=== PATIENT | female | born 1955 | race Caucasian/White ===

== ENCOUNTER 2017-11-18 09:13 | Inpatient (IN) | payer OTHER ==
[2017-11-18] MEDS ORDERED: ACETAMINOPHEN 325 MG TAB PO (09:30)
[2017-11-18] MEDS ORDERED: DOCUSATE SODIUM 100 MG CAP PO (09:30)
[2017-11-18] MEDS ORDERED: ONDANSETRON 4 MG INJ IV (09:30)
[2017-11-18] MEDS ORDERED: BISACODYL 10 MG SUPP PR (09:30)
[2017-11-18] MEDS ORDERED: MAGNESIUM HYDROXIDE 30ML CUP PO (09:30)
[2017-11-18] MEDS ORDERED: NITROGLYCERIN (SL) 0.4 MG TAB SL (09:30)
[2017-11-18] MEDS ORDERED: NACL 0.9% 3 ML SYG IV (09:30)
[2017-11-18 10:43] LABS: ADD MAN DIFF? NO
[2017-11-18 10:51] LABS: BASOPHILS % 0.5 % (0.0-2.0); EOSINOPHILS # 0.1 10^3/ul (0.0-0.5); EOSINOPHILS % 1.1 % (0.0-7.0); HEMATOCRIT 39.1 % (37.0-47.0); HEMOGLOBIN 12.4 g/dl (12.0-16.0); LYMPHOCYTES # 1.2 10^3/ul (0.8-2.9); MEAN CORPUSCULAR HEMOGLOBIN 28.3 pg (29.0-33.0); MEAN CORPUSCULAR HGB CONC 31.7 g/dl (32.0-37.0); MEAN CORPUSCULAR VOLUME 89.3 fl (82.0-101.0); MEAN PLATELET VOLUME 10.7 fl (7.4-10.4); MONOCYTE # 0.4 10^3/ul (0.3-0.9); MONOCYTES % 7.8 % (0.0-11.0); NEUTROPHIL # 3.8 10^3/ul (1.6-7.5); NEUTROPHILS % 68.4 % (39.0-77.0); PLATELET COUNT 278 10^3/UL (140-415); RED BLOOD COUNT 4.38 10^6/ul (4.20-5.40)
[2017-11-18 10:51] LABS: WHITE BLOOD COUNT 5.5 10^3/ul (4.8-10.8)
[2017-11-18] MEDS ORDERED: morphine LIQ (10 MG/5 ML) CUP PO (11:00)
[2017-11-18 11:18] LABS: ALANINE AMINOTRANSFERASE 28 IU/L (13-69); ALBUMIN 3.6 g/dl (3.3-4.9); ALBUMIN/GLOBULIN RATIO 1.05; ALKALINE PHOSPHATASE 87 IU/L (42-121); AMYLASE 35 U/L (11-123); ANION GAP 14 (8-16); ASPARTATE AMINO TRANSFERASE 20 IU/L (15-46); BILIRUBIN,INDIRECT 0.3 mg/dl (0-1.1); BILIRUBIN,TOTAL 0.3 mg/dl (0.2-1.3); BLOOD UREA NITROGEN 21 mg/dl (7-20); CALCIUM 9.1 mg/dl (8.4-10.2); CARBON DIOXIDE 26 mmol/L (21-31); CHLORIDE 110 mmol/L (97-110); CHOLESTEROL 187 mg/dl (100-200); CREATINE KINASE 60 IU/L (23-200); CREATININE 0.79 mg/dl (0.44-1.00); GLUCOSE 106 mg/dl (70-220); HDL CHOLESTEROL 62 mg/dl (35-98); LDL CHOLESTEROL,CALCULATED 113 mg/dl; LIPASE 48 U/L (23-300); MAGNESIUM 2.2 mg/dl (1.7-2.5); PHOSPHORUS 4.3 mg/dl (2.5-4.9); POTASSIUM 4.1 mmol/L (3.5-5.1); SODIUM 146 mmol/L (135-144); TRIGLYCERIDES 59 mg/dl (0-149)
[2017-11-18 11:22] LABS: INR 1.05; PROTIME 13.8 Sec (11.9-14.9); PT RATIO 1.1
[2017-11-18 11:28] LABS: CK INDEX 0.5; CK-MB 0.32 ng/ml (0.0-2.4)
[2017-11-18 11:35] LABS: TROPONIN-I < 0.012 ng/ml (0.00-0.12)
[2017-11-18] MEDS ORDERED: ALPRAZOLAM 0.5 MG TAB PO (13:00)
[2017-11-18] MEDS ORDERED: CYCLOBENZAPRINE 10 MG TAB PO (13:00)
[2017-11-18] MEDS: REGADENOSON 0.4 MG/5 ML SYG (14:25)
[2017-11-18] MEDS: traMADol 50 MG TAB PO (15:47)
[2017-11-18] MEDS: LORAZEPAM 0.5 MG TAB PO (15:47)
[2017-11-18] MEDS ORDERED: FAMOTIDINE 20 MG INJ IV (21:00)
[2017-11-19] MEDS ORDERED: ASPIRIN 81 MG TAB PO (09:00)
== END 2017-11-18 19:30 | disposition home or self-care (01) | DRG 313 ==
LOC: TEL 09:13
DX: R07.89 Other chest pain (principal); Z68.43 Body mass index [BMI] 50.0-59.9, adult; E03.9 Hypothyroidism, unspecified; E78.5 Hyperlipidemia, unspecified; E66.01 Morbid (severe) obesity due to excess calories; F41.9 Anxiety disorder, unspecified
CPT/HCPCS: 78452; 80053; 80061; 82150; 82550; 82553; 83690; 83735; 84100; 84484; 85025; 85610; 85730; 93005; 93017